=== PATIENT | male | born 1955 | race Caucasian/White ===

== ENCOUNTER 2024-01-28 06:01 | Emergency (ER) | payer SELFPAY ==
[~2024-01-28] VITALS: Ht 175.3 cm; Wt 82.0 kg
[2024-01-28 06:07] VITALS: O2SAT 100
[2024-01-28] MEDS ORDERED: DEXAMETHASONE 1MG TABLET PO ONE (07:15)
[2024-01-28] MEDS: DEXAMETHASONE 10 MG/ML VIAL PO NR (07:43)
[2024-01-28] MEDS: IBUPROFEN 600MG TABLET PO ONE (07:43)
[2024-01-28 07:47] VITALS: BP 181/91; PULSE 80; RESP 18; TEMP 98.5
== END 2024-01-28 07:48 | disposition home or self-care (01) ==
LOC: ER 06:01
DX: J02.9 Acute pharyngitis, unspecified (principal); B34.9 Viral infection, unspecified
CPT/HCPCS: 99283; J1100; Z7610; J8540